=== PATIENT | female | born 1945 | race African-American/Black ===

== ENCOUNTER → 2018-12-08 | Outpatient (CLI) | payer MEDICARE, OTHER ==
[~2018-12-08] MED LIST: BARIUM SULFATE 450ML ORAL SUSP ONE; FAMO40TA7 PO; IOHEXOL-300 100 ML BOTTLE ONE; LOSA50TA20 PO; METF-414 PO; METF-416 PO; METO-385 PO; SIMV20TA6 PO
== END | disposition home or self-care (01) ==
LOC: CT 08:00
PROVIDERS: ATTEND Internal Medicine Gastroenterology
DX: M47.816 Spondylosis without myelopathy or radiculopathy, lumbar region (principal)
CPT/HCPCS: 74177; Q9967

== ENCOUNTER 2022-05-19 11:24 | Inpatient (IN) | payer MEDICARE, OTHER ==
[~2022-05-19] VITALS: Ht 160 cm; Wt 84.8 kg
[~2022-05-19 11:24] MED LIST changes: -BARIUM SULFATE 450ML ORAL SUSP ONE; -IOHEXOL-300 100 ML BOTTLE ONE; -LOSA50TA20 PO; +LOSA50TA41 PO; +SIMV-43 PO; -SIMV20TA6 PO
[2022-05-19 13:49] LABS: BASOPHILS % 0.9 % (0.0-2.0); HEMATOCRIT. 36.3 % (36.0-48.0); HEMOGLOBIN. 12.4 g/dL (12.0-16.0); LYMPHOCYTES % 36.9 % (20.0-50.0); MEAN CORPUSCULAR HEMOGLOBIN 34.2 pg (28.0-32.0); MEAN CORPUSCULAR VOLUME 100.3 fL (81.0-99.0); MEAN PLATELET VOLUME 8.7 fl (7.4-10.4); MONOCYTES % 7.9 % (2.0-8.0); NEUTROPHILS % 53.3 % (40.0-76.0); PLATELET 181 x1000/uL (130-400); RED BLOOD CELL COUNT 3.62 mill/uL (4.2-5.4); RED CELL DISTRIBUTION WIDTH 12.6 % (11.6-14.6)
[2022-05-19 13:51] LABS: CHLORIDE 105 mEq/L (98-107)
[2022-05-19] MEDS ORDERED: FAMOTIDINE 20MG/2ML VIAL IV ONE (14:30)
[2022-05-19] MEDS ORDERED: ASPIRIN 325MG TABLET PO ONE (14:45)
[2022-05-19] MEDS ORDERED: LORAZEPAM 0.5MG TABLET PO PRN (16:45)
[2022-05-19] MEDS ORDERED: GUAIFENESIN 200MG/10ML SUGAR FREE UDC PO PRN ×2 (16:45→17:15)
[2022-05-19] MEDS ORDERED: CLONIDINE 0.1MG TABLET PO PRN ×2 (16:45→17:15)
[2022-05-19] MEDS ORDERED: ACETAMINOPHEN 325MG TABLET PO PRN ×3 (16:45→17:15)
[2022-05-19] MEDS ORDERED: DOCUSATE SODIUM 100MG CAPSULE PO PRN ×2 (16:45→17:15)
[2022-05-19] MEDS ORDERED: ONDANSETRON HCL 4MG/2ML INJ IV PRN ×2 (16:45→17:15)
[2022-05-19] MEDS ORDERED: ZOLPIDEM TARTRATE 5MG TABLET PO PRN ×2 (16:45→17:15)
[2022-05-19] MEDS ORDERED: IPRATROPIUM/ALBUTEROL 0.5-3(2.5)MG/3ML NEB HHN PRN (16:45)
[2022-05-19] MEDS ORDERED: MAGNESIUM/ALUMINUM HYDROXIDE/SIMETHICONE 30ML UDC PO PRN ×2 (16:45→17:15)
[2022-05-19] MEDS ORDERED: KETOROLAC 15MG/ML VIAL IV PRN (17:15)
[2022-05-19] MEDS ORDERED: IPRATROPIUM/ALBUTEROL 0.5-3(2.5)MG/3ML NEB NEB PRN (17:15)
[2022-05-19] MEDS ORDERED: NITROGLYCERIN 0.4MG TABLET SL SL PRN (17:15)
[2022-05-19 17:40] VITALS: BP 131/72
[2022-05-19] MEDS ORDERED: ENOXAPARIN 40MG/0.4ML SYR SUBCUT SCH (18:00)
[2022-05-19 20:00] VITALS: BP 130/59
[2022-05-19] MEDS: ENOXAPARIN 40MG/0.4ML SYR SUBCUT SCH (21:17)
[2022-05-19] MEDS: SPIRONOLACTONE 25MG TABLET PO SCH (21:17)
[2022-05-19] MEDS: FUROSEMIDE 40MG/4ML VIAL IVP SCH (21:17)
[2022-05-19] MEDS ORDERED: CHOL400D7 PO (21:45)
[2022-05-19] MEDS ORDERED: SACU1TAB7 MT (21:45)
[2022-05-19] MEDS ORDERED: SITA100T11 MT (21:54)
[2022-05-19] MEDS ORDERED: ASCO500C18 MT (21:54)
[2022-05-19] MEDS ORDERED: SUCR1TAB30 PO (21:54)
[2022-05-19] MEDS ORDERED: CYAN250014 PO (21:54)
[2022-05-19] MEDS ORDERED: FERR250T2 PO (21:54)
[2022-05-19] MEDS ORDERED: *PATIENT'S OWN MEDICATION STORAGE XX SCH (23:00)
[2022-05-19 23:19] LABS: CLARITY URINE CLEAR (CLEAR); COLOR URINE YELLOW (YELLOW); KETONES URINE NEGATIVE (NEGATIVE); LEUKOCYTE ESTERASE URINE 2+ (NEGATIVE); NITRITE URINE NEGATIVE (NEGATIVE); OCCULT BLOOD URINE NEGATIVE (NEGATIVE); PH URINE 5.5 (4.5-8.0); PROTEIN URINE NEGATIVE (NEGATIVE); UROBILINOGEN URINE 0.2 E.U./dL (0.2-1.0)
[2022-05-19 23:34] LABS: *AMPHETAMINES SCREEN URINE NEGATIVE (NEGATIVE); *BARBITURATES SCREEN URINE NEGATIVE (NEGATIVE); *BENZODIAZEPINES SCREEN URINE NEGATIVE (NEGATIVE); *COCAINE SCREEN URINE NEGATIVE (NEGATIVE); CANNABINOID URINE SCREEN NEGATIVE (NEGATIVE); METHADONE URINE SCREEN NEGATIVE (NEGATIVE); OPIATES URINE SCREEN NEGATIVE (NEGATIVE); PHENCYCLIDINE URINE SCREEN NEGATIVE (NEGATIVE)
[2022-05-19 23:52] LABS: CREATINE KINASE MB FRACTION 1.1 ng/mL (0.5-3.6)
[2022-05-20] VITALS (7 sets, daily range): BP systolic 103–134; BP diastolic 52–66
[2022-05-20 04:48] LABS: CHLORIDE 105 mEq/L (98-107)
[2022-05-20 04:59] LABS: CREATINE KINASE 82 IU/L (26-192); CREATINE KINASE MB FRACTION < 1.0 ng/mL (0.5-3.6)
[2022-05-20 05:12] LABS: HDL CHOLESTEROL 73 mg/dL (40-59); LDL CHOLESTEROL 36 mg/dL (5-100); PHOSPHORUS 3.6 mg/dL (2.5-4.9); TOTAL IRON BINDING CAPACITY 248 ug/dL (250-450)
[2022-05-20 05:29] LABS: VITAMIN B12 SERUM 1035 pg/mL (211-911)
[2022-05-20 06:35] LABS: BASOPHILS % 0.5 % (0.0-2.0); EOSINOPHILS % 1.5 % (0.0-5.0); HEMATOCRIT. 35.9 % (36.0-48.0); HEMOGLOBIN. 12.2 g/dL (12.0-16.0); LYMPHOCYTES % 44.9 % (20.0-50.0); MEAN CORPUSCULAR HEMOGLOBIN 33.8 pg (28.0-32.0); MEAN CORPUSCULAR VOLUME 99.6 fL (81.0-99.0); MEAN PLATELET VOLUME 9.3 fl (7.4-10.4); MONOCYTES % 8.4 % (2.0-8.0); NEUTROPHILS % 44.7 % (40.0-76.0); PLATELET 195 x1000/uL (130-400); RED BLOOD CELL COUNT 3.61 mill/uL (4.2-5.4); RED CELL DISTRIBUTION WIDTH 12.9 % (11.6-14.6)
[2022-05-20 08:13] LABS: FERRITIN 66 ng/mL (10-291)
[2022-05-20 08:26] LABS: FOLIC ACID (FOLATE) SERUM > 20.00 ng/mL (>5.38)
[2022-05-20] MEDS: FUROSEMIDE 40MG/4ML VIAL IVP SCH (08:55)
[2022-05-20] MEDS: SPIRONOLACTONE 25MG TABLET PO SCH ×2 (08:55→20:58)
[2022-05-20] MEDS: PANTOPRAZOLE 40MG DR TABLET PO SCH (09:59)
[2022-05-20] MEDS ORDERED: REGADENOSON 0.4 MG/5 ML IV NR (11:30)
[2022-05-20] MEDS: ENOXAPARIN 40MG/0.4ML SYR SUBCUT SCH (17:12)
[2022-05-20] MEDS ORDERED: DEXTROSE 50% WATER 50ML SYRINGE IV PRN (19:45)
[2022-05-20] MEDS: BLOOD SUGAR DIAGNOSTIC STRIP TEST SCH (19:47)
[2022-05-20] MEDS: INSULIN LISPRO 100 UNITS/ML SUBCUT SCH (20:58)
[2022-05-21 03:49] VITALS: BP 112/55
[2022-05-21] MEDS: INSULIN LISPRO 100 UNITS/ML SUBCUT SCH ×3 (05:26→17:40)
[2022-05-21] MEDS: BLOOD SUGAR DIAGNOSTIC STRIP TEST SCH ×3 (05:26→17:10)
[2022-05-21 08:00] VITALS: BP 119/45
[2022-05-21] MEDS: SPIRONOLACTONE 25MG TABLET PO SCH (08:20)
[2022-05-21] MEDS: PANTOPRAZOLE 40MG DR TABLET PO SCH (08:20)
[2022-05-21] MEDS ORDERED: REGADENOSON 0.4 MG/5 ML IV NR (08:30)
[2022-05-21 12:46] VITALS: BP 113/66
[2022-05-21 16:00] VITALS: BP 109/62
[2022-05-21] MEDS ORDERED: NITR100C11 PO (16:04)
[2022-05-21 17:00] VITALS: BP 109/62
[2022-05-21] MEDS: ENOXAPARIN 40MG/0.4ML SYR SUBCUT SCH (17:15)
[2022-05-21] MEDS ORDERED: NITROFURANTOIN 100MG M/M CAPSULE PO SCH (18:00)
== END 2022-05-21 18:30 | disposition home or self-care (01) | DRG 313 ==
LOC: ER 13:08 → 8WST 15:24 → ENRESERV 15:44 → SUPCPDRO 17:05
PROVIDERS: ADMIT Internal Medicine; ATTEND Internal Medicine
DX: R07.89 Other chest pain (principal); I50.22 Chronic systolic (congestive) heart failure; N39.0 Urinary tract infection, site not specified; G45.9 Transient cerebral ischemic attack, unspecified; I20.0 Unstable angina; E11.9 Type 2 diabetes mellitus without complications; E78.5 Hyperlipidemia, unspecified; Z20.822 Contact with and (suspected) exposure to COVID-19; I11.0 Hypertensive heart disease with heart failure; I44.7 Left bundle-branch block, unspecified; K21.9 Gastro-esophageal reflux disease without esophagitis; E78.00 Pure hypercholesterolemia, unspecified; Z85.3 Personal history of malignant neoplasm of breast; Z87.891 Personal history of nicotine dependence; Z79.84 Long term (current) use of oral hypoglycemic drugs; Z79.899 Other long term (current) drug therapy
CPT/HCPCS: 36415; 71045; 78452; 80053; 80061; 80305; 81003; 82550; 82553; 82607; 82728; 82746; 82962; 83036; 83540; 83550; 83605; 83735; 83880; 84100; 84484; 85025; 86850; 86900; 87426; 93005; 93017; 93306; 93970; 99285; A9500; J1650; J1815; J1940; J2785; J3490

== ENCOUNTER 2023-04-07 13:03 | Inpatient (IN) | payer MEDICARE, OTHER ==
[~2023-04-07] VITALS: Ht 160 cm; Wt 75.8 kg
[~2023-04-07 13:03] MED LIST changes: +ASCO500C18 MT; +CHOL400D7 PO; +CYAN250014 PO; -FAMO40TA7 PO; +FERR250T2 PO; -LOSA50TA41 PO; -METF-414 PO; +SACU1TAB7 MT; +SITA100T11 MT; +SUCR1TAB30 PO
[2023-04-07 16:19] LABS: BASOPHILS % 0.7 % (0.0-2.0); EOSINOPHILS % 1.7 % (0.0-5.0); HEMATOCRIT. 40.5 % (36.0-48.0); HEMOGLOBIN. 13.5 g/dL (12.0-16.0); LYMPHOCYTES % 30.6 % (20.0-50.0); MEAN CORPUSCULAR HEMOGLOBIN 33.1 pg (28.0-32.0); MEAN CORPUSCULAR HGB CONC 33.3 g/dL (31.0-37.0); MEAN CORPUSCULAR VOLUME 99.4 fL (81.0-99.0); MEAN PLATELET VOLUME 9.4 fl (7.4-10.4); MONOCYTES % 6.9 % (2.0-8.0); NEUTROPHILS % 60.1 % (40.0-76.0); PLATELET 203 x1000/uL (130-400); RED BLOOD CELL COUNT 4.07 mill/uL (4.2-5.4); WHITE BLOOD COUNT 5.4 x1000/uL (4.5-11.0)
[2023-04-07 16:21] LABS: CLARITY URINE CLEAR (CLEAR); COLOR URINE YELLOW (YELLOW); GLUCOSE URINE NEGATIVE (NEGATIVE); KETONES URINE 1+ (NEGATIVE); LEUKOCYTE ESTERASE URINE 2+ (NEGATIVE); NITRITE URINE NEGATIVE (NEGATIVE); OCCULT BLOOD URINE NEGATIVE (NEGATIVE); PH URINE 5.5 (4.5-8.0); PROTEIN URINE NEGATIVE (NEGATIVE); SPECIFIC GRAVITY URINE 1.015 (1.005-1.030)
[2023-04-07 16:30] LABS: CHLORIDE 112 mEq/L (98-107); INDEX HEMOLYSI 4 (1-3); INDEX ICTERIC 1 (1-4); INDEX LIPEMIC 1 (1-3); SODIUM 140 mEq/L (136-145)
[2023-04-07 16:38] LABS: BACTERIA URINE 1+; RBC URINE 0-2 /hpf (0-2); SQUAMOUS EPITHELIAL CELL URINE 1+ /lpf (RARE/1+)
[2023-04-07 16:40] LABS: ALANINE AMINOTRANSFERASE 21 IU/L (13-61); ASPARTATE AMINOTRANSFERASE 32 IU/L (15-37); BILIRUBIN TOTAL 0.5 mg/dL (0.1-1.0); CALCIUM 9.1 mg/dL (8.5-10.1); CARBON DIOXIDE 27 mEq/L (21-32); CREATININE 0.9 mg/dL (0.6-1.3); GLUCOSE 110 mg/dL (70-105); NT PRO B-TYPE NATRIURETIC PEP 2454 pg/mL (5-125); PROTEIN TOTAL 7.9 g/dL (6.0-8.3); TROPONIN I HIGH SENSITIVITY 26 ng/L (<54); UREA NITROGEN BLOOD 12 mg/dL (7-21)
[2023-04-07 16:41] LABS: POTASSIUM 5.1 mEq/L (3.5-5.1)
[2023-04-07 16:52] LABS: PHOSPHORUS 2.7 mg/dL (2.5-4.9); T4 FREE 1.14 ng/dL (0.76-1.46); THYROID STIMULATING HORMONE 2.2 uIU/mL (0.36-3.74)
[2023-04-07] MEDS ORDERED: ASPIRIN 325MG EC TABLET PO ONE (17:00)
[2023-04-07] MEDS ORDERED: MAGNESIUM 2 G PREMIX 50 ML IV ONE (17:30)
[2023-04-07 18:12] LABS: TROPONIN I HIGH SENSITIVITY 27 ng/L (<54)
[2023-04-07] MEDS ORDERED: HYDROCODONE/ACETAMINOPHEN 5/325MG TABLET PO PRN (18:15)
[2023-04-07] MEDS ORDERED: IPRATROPIUM/ALBUTEROL 0.5-3(2.5)MG/3ML NEB HHN PRN (18:15)
[2023-04-07] MEDS ORDERED: GUAIFENESIN 200MG/10ML SUGAR FREE UDC PO PRN (18:15)
[2023-04-07] MEDS ORDERED: DOCUSATE SODIUM 100MG CAPSULE PO PRN (18:15)
[2023-04-07] MEDS ORDERED: ACETAMINOPHEN 325MG TABLET PO PRN (18:15)
[2023-04-07] MEDS ORDERED: MAGNESIUM/ALUMINUM HYDROXIDE/SIMETHICONE 30ML UDC PO PRN (18:15)
[2023-04-07] MEDS ORDERED: CLONIDINE 0.1MG TABLET PO PRN (18:15)
[2023-04-07] MEDS ORDERED: TRAMADOL 50MG TABLET PO PRN (18:15)
[2023-04-07] MEDS ORDERED: ONDANSETRON HCL 4MG/2ML INJ IV PRN (18:15)
[2023-04-07] MEDS ORDERED: PANT20TA17 PO (18:20)
[2023-04-07] MEDS ORDERED: LANC-493 TP (18:20)
[2023-04-07] MEDS ORDERED: CHOL2000 PO (18:20)
[2023-04-07] MEDS ORDERED: SACU1TAB7 PO (18:22)
[2023-04-07] MEDS ORDERED: BLOO-1113 TP (18:22)
[2023-04-07] MEDS ORDERED: NALOXONE HCL 0.4MG/ML VIAL IV PRN (18:30)
[2023-04-07 23:00] VITALS: BP 120/61; PULSE 75; RESP 18; TEMP 97.9
[2023-04-07] MEDS ORDERED: SIMV-43 PO (23:47)
[2023-04-08] VITALS: BP 110/55; PULSE 73; RESP 19; TEMP 97.5
[2023-04-08] MEDS ORDERED: DEXTROSE 50% WATER 50ML SYRINGE IV PRN
[2023-04-08 04:00] VITALS: BP 124/64; PULSE 70; RESP 19; TEMP 97.2
[2023-04-08] MEDS: BLOOD SUGAR DIAGNOSTIC STRIP TEST SCH ×4 (06:34→20:56)
[2023-04-08 07:06] LABS: DIFFERENTIAL COMMENT 0; EOSINOPHILS % 3.3 % (0.0-5.0); HEMATOCRIT. 35.8 % (36.0-48.0); HEMOGLOBIN. 12.2 g/dL (12.0-16.0); LYMPHOCYTES % 41.7 % (20.0-50.0); MEAN CORPUSCULAR HEMOGLOBIN 34.3 pg (28.0-32.0); MEAN CORPUSCULAR HGB CONC 34.2 g/dL (31.0-37.0); MEAN CORPUSCULAR VOLUME 100.3 fL (81.0-99.0); MEAN PLATELET VOLUME 9.5 fl (7.4-10.4); MONOCYTES % 8.9 % (2.0-8.0); NEUTROPHILS % 45.1 % (40.0-76.0); PLATELET 184 x1000/uL (130-400); RED BLOOD CELL COUNT 3.56 mill/uL (4.2-5.4); RED CELL DISTRIBUTION WIDTH 12.8 % (11.6-14.6); WHITE BLOOD COUNT 3.6 x1000/uL (4.5-11.0)
[2023-04-08 07:37] LABS: CHLORIDE 110 mEq/L (98-107); INDEX HEMOLYSI 1 (1-3); INDEX ICTERIC 1 (1-4); INDEX LIPEMIC 1 (1-3); POTASSIUM 3.8 mEq/L (3.5-5.1); SODIUM 141 mEq/L (136-145)
[2023-04-08 07:59] LABS: ALANINE AMINOTRANSFERASE 17 IU/L (13-61); ALBUMIN 3.5 g/dL (3.4-5.0); ASPARTATE AMINOTRANSFERASE 16 IU/L (15-37); BILIRUBIN TOTAL 0.5 mg/dL (0.1-1.0); CARBON DIOXIDE 29 mEq/L (21-32); CHOLESTEROL 120 mg/dL (<200); CREATININE 0.9 mg/dL (0.6-1.3); GLUCOSE 125 mg/dL (70-105); HDL CHOLESTEROL 78 mg/dL (40-59); LDL CHOLESTEROL 38 mg/dL (5-100); PROTEIN TOTAL 6.7 g/dL (6.0-8.3); TRIGLYCERIDE 75 mg/dL (0-150); UREA NITROGEN BLOOD 14 mg/dL (7-21)
[2023-04-08 08:00] VITALS: BP 133/51; PULSE 95; RESP 18; TEMP 97
[2023-04-08] MEDS: INSULIN LISPRO 100 UNITS/ML SUBCUT SCH ×4 (08:10→20:57)
[2023-04-08] MEDS: AMLODIPINE 10MG TABLET PO SCH (08:50)
[2023-04-08] MEDS ORDERED: METOPROLOL TARTRATE 25MG TABLET PO SCH (10:00)
[2023-04-08 12:00] VITALS: BP 153/73; PULSE 20; RESP 20; TEMP 98.6
[2023-04-08 16:00] VITALS: BP 115/80; PULSE 16; RESP 16; TEMP 96.9
[2023-04-08] MEDS: ENOXAPARIN 40MG/0.4ML SYR SUBCUT SCH (18:24)
[2023-04-08 20:00] VITALS: BP 110/65; PULSE 71; RESP 18; TEMP 97.5
[2023-04-08] MEDS: METOPROLOL TARTRATE 50MG TABLET PO SCH (20:56)
[2023-04-08] MEDS: SACUBITRIL/VALSARTAN 49MG/51MG TABLET PO SCH (20:56)
[2023-04-09] VITALS: BP 118/61; PULSE 70; RESP 20; TEMP 97.9
[2023-04-09 04:00] VITALS: BP 120/63; PULSE 68; RESP 20; TEMP 97.9
[2023-04-09] MEDS: BLOOD SUGAR DIAGNOSTIC STRIP TEST SCH ×4 (06:23→21:00)
[2023-04-09 07:00] LABS: BASOPHILS % 0.9 % (0.0-2.0); DIFFERENTIAL COMMENT 0; EOSINOPHILS % 3.4 % (0.0-5.0); LYMPHOCYTES % 38.8 % (20.0-50.0); MEAN CORPUSCULAR HEMOGLOBIN 34.4 pg (28.0-32.0); MEAN CORPUSCULAR HGB CONC 34.3 g/dL (31.0-37.0); MEAN CORPUSCULAR VOLUME 100.2 fL (81.0-99.0); MEAN PLATELET VOLUME 9.4 fl (7.4-10.4); MONOCYTES % 9.9 % (2.0-8.0); PLATELET 176 x1000/uL (130-400); RED BLOOD CELL COUNT 3.49 mill/uL (4.2-5.4); RED CELL DISTRIBUTION WIDTH 12.8 % (11.6-14.6); WHITE BLOOD COUNT 3.6 x1000/uL (4.5-11.0)
[2023-04-09 07:14] LABS: CHLORIDE 112 mEq/L (98-107); INDEX HEMOLYSI 2 (1-3); INDEX ICTERIC 1 (1-4); INDEX LIPEMIC 1 (1-3); POTASSIUM 3.8 mEq/L (3.5-5.1); SODIUM 140 mEq/L (136-145)
[2023-04-09 07:24] LABS: ALANINE AMINOTRANSFERASE 17 IU/L (13-61); ALBUMIN 3.4 g/dL (3.4-5.0); ASPARTATE AMINOTRANSFERASE 15 IU/L (15-37); BILIRUBIN TOTAL 0.7 mg/dL (0.1-1.0); CALCIUM 8.8 mg/dL (8.5-10.1); CARBON DIOXIDE 25 mEq/L (21-32); CREATININE 0.8 mg/dL (0.6-1.3); GLUCOSE 126 mg/dL (70-105); PROTEIN TOTAL 6.7 g/dL (6.0-8.3); UREA NITROGEN BLOOD 14 mg/dL (7-21)
[2023-04-09 08:00] VITALS: BP 147/74; PULSE 85; RESP 18; TEMP 97.6
[2023-04-09] MEDS: INSULIN LISPRO 100 UNITS/ML SUBCUT SCH ×4 (08:10→21:23)
[2023-04-09] MEDS: SACUBITRIL/VALSARTAN 49MG/51MG TABLET PO SCH ×2 (08:55→17:43)
[2023-04-09] MEDS: METOPROLOL TARTRATE 50MG TABLET PO SCH ×2 (08:55→21:00)
[2023-04-09] MEDS: AMLODIPINE 10MG TABLET PO SCH (08:55)
[2023-04-09] MEDS ORDERED: MAGNESIUM 2 G PREMIX 50 ML IV SCH (09:00)
[2023-04-09 11:04] LABS: PROTHROMBIN TIME 10.5 sec (9.6-11.0)
[2023-04-09 12:00] VITALS: BP 124/56; PULSE 66; RESP 16; TEMP 97
[2023-04-09 14:37] LABS: HEPATITIS B SURFACE ANTIGEN NEGATIVE
[2023-04-09 15:05] LABS: HEPATITIS C VIR.AB 0.13 INDEXVAL (0.00-0.80)
[2023-04-09 16:00] VITALS: BP 130/61; PULSE 76; RESP 18; TEMP 97
[2023-04-09] MEDS: ENOXAPARIN 40MG/0.4ML SYR SUBCUT SCH (17:36)
[2023-04-09 20:00] VITALS: BP 101/68; PULSE 77; RESP 16; TEMP 97.2
[2023-04-10] VITALS: BP 126/59; PULSE 80; RESP 19; TEMP 96.6
[2023-04-10 04:00] VITALS: BP 130/62; PULSE 75; RESP 19; TEMP 97.2
[2023-04-10] MEDS: BLOOD SUGAR DIAGNOSTIC STRIP TEST SCH ×2 (07:03→11:44)
[2023-04-10] MEDS: INSULIN LISPRO 100 UNITS/ML SUBCUT SCH ×2 (07:44→12:39)
[2023-04-10 08:00] VITALS: BP 117/58; PULSE 73; RESP 18; TEMP 97.3
[2023-04-10] MEDS: SACUBITRIL/VALSARTAN 49MG/51MG TABLET PO SCH (08:31)
[2023-04-10] MEDS: METOPROLOL TARTRATE 50MG TABLET PO SCH (08:31)
[2023-04-10] MEDS: AMLODIPINE 10MG TABLET PO SCH (10:14)
[2023-04-10 12:00] VITALS: BP 109/55; PULSE 77; RESP 18; TEMP 97.9
[2023-04-10] MEDS ORDERED: SUCRALFATE 1 G/10 ML UDC PO SCH (12:40)
[2023-04-10 15:41] VITALS: BP 129/57; PULSE 82; TEMP 97.6; O2SAT 99
[2023-04-10 16:00] VITALS: BP 129/57; PULSE 83; RESP 18; TEMP 97.7
== END 2023-04-10 16:25 | disposition home health service (06) | DRG 308 ==
LOC: ER 13:03 → 7WST 17:06 → EDBEDREQ 17:10 → EDBEDREQTM 17:10
PROVIDERS: ADMIT Hospitalist; ATTEND Hospitalist
DX: I47.1 Supraventricular tachycardia (principal); I50.23 Acute on chronic systolic (congestive) heart failure; I11.0 Hypertensive heart disease with heart failure; E11.9 Type 2 diabetes mellitus without complications; E83.42 Hypomagnesemia; E78.00 Pure hypercholesterolemia, unspecified; K21.9 Gastro-esophageal reflux disease without esophagitis; T45.1X5A Adverse effect of antineoplastic and immunosuppressive drugs, initial encounter; F41.9 Anxiety disorder, unspecified; Z85.3 Personal history of malignant neoplasm of breast; Z79.4 Long term (current) use of insulin; Y92.89 Other specified places as the place of occurrence of the external cause
CPT/HCPCS: 36415; 71045; 80053; 80061; 81003; 82962; 83036; 83735; 83880; 84100; 84439; 84443; 84484; 85025; 85379; 86803; 87340; 93005; 93306; 93970; 97162; 97165; 99285; J1650; J1815; J3475